=== PATIENT | female | born 1955 | race African-American/Black ===

== ENCOUNTER 2016-11-10 21:10 | Inpatient (IN) | payer MEDICARE, MEDICAID ==
[~2016-11-10] VITALS: Ht 165.1 cm; Wt 165.6 kg
[~2016-11-10 21:10] MED LIST: CYCL5TAB PO; LISI1TAB3 PO; OXYC-323 PO
[2016-11-10] MEDS ORDERED: MORPHINE SULFATE 10 MG/ML VIAL. IV ONE (22:15)
[2016-11-10] MEDS ORDERED: ONDANSETRON PF 4 MG/2 ML VIAL. IV ONE (22:15)
[2016-11-10] MEDS ORDERED: IOHEXOL 300 MG/ML 75 ML VIAL IV ONE (22:45)
[2016-11-10] MEDS ORDERED: CONTRAST GIVEN MC PRN (22:45)
[2016-11-10 23:11] LABS: BASO % 1 % (0-3); EOS % 3 % (0-3); HEMATOCRIT 41.3 % (36.0-47.0); HEMOGLOBIN 13.2 g/dL (12.0-15.5); LYMPH # 1.7 x10^3/uL (1.0-4.8); LYMPH % 27 % (24-48); MEAN CORPUSCULAR HEMOGLOBIN 30 pg (25-35); MEAN CORPUSCULAR HGB CONC 32 g/dL (31-37); MEAN CORPUSCULAR VOLUME 93 fL (79-100); MONO % 13 % (0-9); NEUT % 56 % (31-73); PLATELET COUNT 278 x10^3/uL (140-400); RED BLOOD COUNT 4.46 x10^6/uL (3.50-5.40); RED CELL DISTRIBUTION WIDTH 13.3 % (11.5-14.5); WHITE BLOOD COUNT 6.3 x10^3/uL (4.0-11.0)
[2016-11-10 23:21] LABS: CALCIUM 9.4 mg/dL (8.5-10.1); CREATININE 1.1 mg/dL (0.6-1.0); GFR 61.5; POTASSIUM 4.1 mmol/L (3.5-5.1)
[2016-11-10 23:23] LABS: ALBUMIN/GLOBULIN RATIO 0.7 (1.0-1.7); PROTHROMBIN TIME PATIENT 12.4 SEC (11.7-14.0); TOTAL BILIRUBIN 0.2 mg/dL (0.2-1.0); TOTAL PROTEIN 7.5 g/dL (6.4-8.2)
[2016-11-10 23:27] LABS: BILIRUBIN,URINE NEGATIVE (NEG); GLUCOSE,URINE NEGATIVE (NEG); NITRITE,URINE NEGATIVE (NEG); PROTEIN,URINE NEGATIVE (NEG-TRACE)
[2016-11-10 23:32] LABS: BACTERIA,URINE 0 /HPF (0-FEW); RBC,URINE 0 /HPF (0-2); SQUAMOUS EPITHELIAL CELL,UR MANY /LPF; WBC,URINE 0 /HPF (0-4)
--- NOTE | 2016-11-10 23:40 | PHYS DOC ---
Past Medical History Past Medical History: Hypertension, Other Additional Past Medical Histor: BULGING DISC, OBESITY Past Surgical History: Cholecystectomy, Hysterectomy Alcohol Use: None Drug Use: None Adult General Chief Complaint Chief Complaint: FLANK PAIN HPI HPI 61-year-old morbidly obese female presents with sharp right sided lower chest pain. She states it's underneath her right breast. She states it's worse with deep breath. She has shortness of breath as well as dyspnea on exertion. She states she has felt some palpitations. She also feels like that may be the pain radiates to her back and into her right upper quadrant. She denies any fever chills or sweats. She's not had any nausea or vomiting. She denies any cough or hemoptysis. [] Review of Systems Review of Systems Constitutional: Denies fever or chills [] Eyes: Denies change in visual acuity, redness, or eye pain [] HENT: Denies nasal congestion or sore throat [] Respiratory: Per history of present illness [] Cardiovascular: No additional information not addressed in HPI [] GI: Denies abdominal pain, nausea, vomiting, bloody stools or diarrhea [] : Denies dysuria or hematuria [] Musculoskeletal: Denies back pain or joint pain [] Integument: Denies rash or skin lesions [] Neurologic: Denies headache, focal weakness or sensory changes [] Endocrine: Denies polyuria or polydipsia [] Current Medications Current Medications Current Medications Medications (Trade) Dose Ordered Sig/Cain Start Time Stop Time Status Last Admin Dose Admin Albuterol/ Ipratropium (Duoneb) 3 ml 1X ONCE 11/11/16 00:45 11/11/16 00:46 DC Azithromycin (Zithromax) 500 mg 1X ONCE 11/11/16 00:45 11/11/16 00:46 DC Ceftriaxone Sodium (Rocephin 1gm Ivpb For Omni) 50 ml @ 100 mls/hr 1X ONCE 11/11/16 00:45 11/11/16 01:14 Info 1 each 1 each PRN DAILY PRN 11/10/16 22:45 11/12/16 22:44 Iohexol (Omnipaque 300 Mg/ml) 75 ml 1X ONCE 11/10/16 22:45 11/10/16 22:46 DC 11/10/16 22:45 75 ML Morphine Sulfate 5 mg 1X ONCE 11/10/16 22:15 11/10/16 22:16 DC 11/10/16 23:05 5 MG Ondansetron HCl (Zofran) 4 mg 1X ONCE 11/10/16 22:15 11/10/16 22:16 DC 11/10/16 23:05 4 MG Allergies Allergies Allergies Coded Allergies Type Severity Reaction Last Updated Verified Sulfa (Sulfonamide Antibiotics) Allergy Intermediate Itching 11/27/15 Yes fentanyl Allergy Intermediate Itching 11/27/15 Yes gabapentin Allergy Intermediate Itching 11/27/15 Yes Physical Exam Physical Exam Constitutional: Well developed, well nourished, mild to moderate distress, non- toxic appearance. [] HENT: Normocephalic, atraumatic, bilateral external ears normal, oropharynx moist, no oral exudates, nose normal. [] Eyes: PERRLA, EOMI, conjunctiva normal, no discharge. [] Neck: Normal range of motion, no tenderness, supple, no stridor. [] Cardiovascular: Tachycardia [] Lungs & Thorax: Right chest underneath the right breast mildly tender to palp, good breath sounds bilaterally no wheezes or rales [] Abdomen: Bowel sounds normal, soft, no tenderness, no masses, no pulsatile masses. [] Skin: Warm, dry, no erythema, no rash. [] Back: No tenderness, no CVA tenderness. [] Extremities: No tenderness, no cyanosis, no clubbing, ROM intact, no edema. [] Neurologic: Alert and oriented X 3, normal motor function, normal sensory function, no focal deficits noted. [] Psychologic: Anxious. [] Current Patient Data Vital Signs Vital Signs Date Time Temp Pulse Resp B/P Pulse Ox O2 Delivery O2 Flow Rate FiO2 11/10/16 23:05 24 94 Room Air 11/10/16 21:38 98.5 103 160/77 98.5 Lab Values Laboratory Tests Test 11/10/16 22:50 11/10/16 23:20 White Blood Count 6.3x10^3/uL (4.0-11.0) Red Blood Count 4.46x10^6/uL (3.50-5.40) Hemoglobin 13.2g/dL (12.0-15.5) Hematocrit 41.3% (36.0-47.0) Mean Corpuscular Volume 93fL (79-100) Mean Corpuscular Hemoglobin 30pg (25-35) Mean Corpuscular Hemoglobin Concent 32g/dL (31-37) Red Cell Distribution Width 13.3% (11.5-14.5) Platelet Count 278x10^3/uL (140-400) Neutrophils (%) (Auto) 56% (31-73) Lymphocytes (%) (Auto) 27% (24-48) Monocytes (%) (Auto) 13% (0-9) H Eosinophils (%) (Auto) 3% (0-3) Basophils (%) (Auto) 1% (0-3) Neutrophils # (Auto) 3.6x10^3uL (1.8-7.7) Lymphocytes # (Auto) 1.7x10^3/uL (1.0-4.8) Monocytes # (Auto) 0.8x10^3/uL (0.0-1.1) Eosinophils # (Auto) 0.2x10^3/uL (0.0-0.7) Basophils # (Auto) 0.0x10^3/uL (0.0-0.2) Prothrombin Time 12.4SEC (11.7-14.0) Prothrombin Time INR 1.0 (0.8-1.1) Sodium Level 146mmol/L (136-145) H Potassium Level 4.1mmol/L (3.5-5.1) Chloride Level 108mmol/L (98-107) H Carbon Dioxide Level 27mmol/L (21-32) Anion Gap 11 (6-14) Blood Urea Nitrogen 15mg/dL (7-20) Creatinine 1.1mg/dL (0.6-1.0) H Estimated GFR (Cockcroft-Gault) 61.5 BUN/Creatinine Ratio 14 (6-20) Glucose Level 104mg/dL (70-99) H Calcium Level 9.4mg/dL (8.5-10.1) Total Bilirubin 0.2mg/dL (0.2-1.0) Aspartate Amino Transferase (AST) 23U/L (15-37) Alanine Aminotransferase (ALT) 28U/L (14-59) Alkaline Phosphatase 83U/L (46-116) Total Protein 7.5g/dL (6.4-8.2) Albumin 3.0g/dL (3.4-5.0) L Albumin/Globulin Ratio 0.7 (1.0-1.7) L Lipase 102U/L (73-393) Urine Collection Type Unknown Urine Color Yellow Urine Clarity Clear Urine pH 6.0 Urine Specific Mousie 1.025 Urine Protein Negativemg/dL (NEG-TRACE) Urine Glucose (UA) Negativemg/dL (NEG) Urine Ketones (Stick) Negativemg/dL (NEG) Urine Blood Negative (NEG) Urine Nitrite Negative (NEG) Urine Bilirubin Negative (NEG) Urine Urobilinogen Dipstick 1.0mg/dL (0.2 mg/dL) Urine Leukocyte Esterase Negative (NEG) Urine RBC 0/HPF (0-2) Urine WBC 0/HPF (0-4) Urine Squamous Epithelial Cells Many/LPF Urine Bacteria 0/HPF (0-FEW) Urine Mucus Mod/LPF Laboratory Tests 11/10/16 22:50 Laboratory Tests 11/10/16 22:50 EKG EKG [] Radiology/Procedures Radiology/Procedures [facility] [address] [place] [address] IMAGING REPORT Signed PATIENT: BEVERLY NOEL ACCOUNT: [id number] : 1955 LOCATION: ER AGE: 61 SEX: F EXAM STATUS: REG ER ORD. PHYSICIAN: TONI PRICE DO REASON: chest pain/soa PROCEDURE: CTA CHEST Examination: CT angiography chest. History: History of chest pain, shortness of breath. COMPARISON 05/28/2013. TECHNIQUE Axial CT angiography images of the chest was performed with IV contrast. Coronal sagittal 3D MIP reformats performed. Exposure: One or more of the following dose reduction technique were utilized for this examination: 1. Automated exposure control. 2.Adjustment of MA and /or KV according to patient size. 3. Use of iterative reconstruction technique. Findings: The visualized thyroid gland grossly appears unremarkable. The caliber of the aorta grossly appears unremarkable. Mild aortic atherosclerosis. There is no evidence of filling defect identified in the main pulmonary arterial trunk and right and left main pulmonary arteries. The distal lobar and segmental branches evaluation is limited due to mottling artifact due to patient body habitus. Prominent appearing right and left hilar lymph nodes identified measuring 3.7 centimeters in the right and 2.1 centimeters in the left. Few enlarged mediastinal lymph nodes identified measuring 2.6 centimeters in the right paratracheal region. 2.6 centimeters in the prevascular space and 3.3 centimeters in the subcarinal region grossly similar to prior exam. There is a 5.5 millimeter nodule identified in the right middle lobe of the lung. There is a small focus of opacity measuring 9 millimeters identified in the posterior right upper lobe of the lung likely atelectasis or infiltrate or nodule. Patchy bibasilar lung ground-glass airspace opacities likely atelectasis or infiltrates. Mild emphysematous changes identified in the apical lungs. No evidence of pleural effusion or pneumothorax. The visualized liver, spleen, adrenals grossly appears unremarkable. Moderate degenerative changes thoracic spine. IMPRESSION - No evidence of central pulmonary embolism. The evaluation of the distal lobar and segmental branches of the pulmonary arteries limited due to patient body habitus. - Enlarged bilateral hilar lymph nodes and mediastinal lymph nodes, grossly similar to prior exam. - Patchy bibasilar ground-glass airspace opacity likely atelectasis or infiltrates. Followup to resolution. - 5.5 millimeter nodule identified in the right middle lobe of the lung. 9 millimeter nodule or focus of opacity identified in the posterior right upper lobe of the lung could be a nodule or atelectasis or infiltrate. Followup per Fleischner society guidelines. Electronically signed by: Al Kumari (Nov 11, 2016 00:15:28) DICTATED and SIGNED BY: AL KUMARI MD DATE: 11/11/16 0015 CC: JUAN J PARK MD; TONI PRICE DO ~ Course & Med Decision Making Course & Med Decision Making Skin, it appears that she has some type of interstitial lung disease. This also not very clear whether she has some interstitial infiltrates. She will be admitted to the hospital for observation by the hospitalist with a pulmonology consult as well. 1 g of Rocephin and 500 mg of a Zithromax ordered here in the emergency department. Case was staffed with the hospitalist. Patient was otherwise resting comfortably in her bed during her course stay here. She showed no evidence of a respiratory burn. She was maintained on oxygen via nasal cannula at 2 L/m with an oxygen saturation of 96-98%. Patient states that she was prescribed amoxicillin within the past month for an upper respiratory infection. This was prescribed by her primary care doctor. She states that she did not complete the full course. Dragon Disclaimer Dragon Disclaimer This electronic medical record was generated, in whole or in part, using a voice recognition dictation system. Departure Departure Impression: Primary Impression: Chest pain Additional Impression: Pneumonia Disposition: ADMITTED INPATIENT Admitting Physician: Other (Dr Daly) Condition: STABLE Referrals: JUAN J PARK MD (PCP) Problem Qualifiers TONI PRICE DO Nov 10, 2016 23:40 KRISTIAN LEOS Nov 11, 2016 00:45
--- NOTE | 2016-11-11 00:17 | RAD ---
Examination: CT angiography chest. History: History of chest pain, shortness of breath. COMPARISON 05/28/2013. TECHNIQUE Axial CT angiography images of the chest was performed with IV contrast. Coronal sagittal 3D MIP reformats performed. Exposure: One or more of the following dose reduction technique were utilized for this examination: 1. Automated exposure control. 2.Adjustment of MA and /or KV according to patient size. 3. Use of iterative reconstruction technique. Findings: The visualized thyroid gland grossly appears unremarkable. The caliber of the aorta grossly appears unremarkable. Mild aortic atherosclerosis. There is no evidence of filling defect identified in the main pulmonary arterial trunk and right and left main pulmonary arteries. The distal lobar and segmental branches evaluation is limited due to mottling artifact due to patient body habitus. Prominent appearing right and left hilar lymph nodes identified measuring 3.7 centimeters in the right and 2.1 centimeters in the left. Few enlarged mediastinal lymph nodes identified measuring 2.6 centimeters in the right paratracheal region. 2.6 centimeters in the prevascular space and 3.3 centimeters in the subcarinal region grossly similar to prior exam. There is a 5.5 millimeter nodule identified in the right middle lobe of the lung. There is a small focus of opacity measuring 9 millimeters identified in the posterior right upper lobe of the lung likely atelectasis or infiltrate or nodule. Patchy bibasilar lung ground-glass airspace opacities likely atelectasis or infiltrates. Mild emphysematous changes identified in the apical lungs. No evidence of pleural effusion or pneumothorax. The visualized liver, spleen, adrenals grossly appears unremarkable. Moderate degenerative changes thoracic spine. IMPRESSION - No evidence of central pulmonary embolism. The evaluation of the distal lobar and segmental branches of the pulmonary arteries limited due to patient body habitus. - Enlarged bilateral hilar lymph nodes and mediastinal lymph nodes, grossly similar to prior exam. - Patchy bibasilar ground-glass airspace opacity likely atelectasis or infiltrates. Followup to resolution. - 5.5 millimeter nodule identified in the right middle lobe of the lung. 9 millimeter nodule or focus of opacity identified in the posterior right upper lobe of the lung could be a nodule or atelectasis or infiltrate. Followup per Fleischner society guidelines. Electronically signed by: Al Kumari (Nov 11, 2016 00:15:28)
--- NOTE | 2016-11-11 00:24 | ACF ---
Admission Forms Criteria CHEST PAIN Clinical Indications for Admission to Inpatient Care (Place 'X' for any and all applicable criteria): Admission is indicated for chest pain and ANY ONE of the following(1)(2)(3)(4)(5 ): [ ]I. Angina with acute coronary syndrome (Also use Myocardial Infarction or Angina guideline) [ ]II. Hemodynamic instability [ ]III. Angina needing acute intervention as indicated by ALL of the following( 11)(12): [ ]a) Unstable angina is present as indicated by angina that is ANY ONE of the following: [ ]i) New onset [ ]ii) Nocturnal [ ]iii) Prolonged at rest [ ]iv) Progressive [ ]b) Angina warrants acute intervention as indicated by ANY ONE of the following: [ ]i) Recurrent angina (e.g, not responding as previously to treatment) [ ]ii) Angina at rest or with low-level activities despite initial medical therapy [ ]iii) New or presumably new ST-segment depression on ECG [ ]iv) Signs or symptoms of heart failure (eg, dyspnea, pulmonary edema) [ ]v) New or worsening mitral regurgitation [ ]vi) Hemodynamic instability [ ]vii) Dangerous arrhythmia (eg, sustained ventricular tachycardia) [ ]viii) History of percutaneous coronary intervention within 6 months [ ]ix) History of coronary artery bypass graft surgery [ ]x) KWAKU risk score of 2 or greater[A] [ ]xi) History of Diabetes(14) [ ]xii) High-risk cardiac ischemia findings on noninvasive testing (e.g, echocardiogram, treadmill testing, nuclear scan) [ ]xiii) Chronic renal insufficiency (ie, estimated GFR less than 60 mL/min/1.732m) [ ]xiv) Left ventricular ejection fraction less than 40% [ ]IV. Evidence of NH (eg, cardiac biomarkers positive, ST-segment elevation on ECG) also use Myocardial Infarction Criteria Form. [ ]V. Pulmonary edema [ ]. Respiratory distress [ ]VII. Chest pain indicative of serious diagnosis other than coronary artery disease (eg, aortic dissection) [ ]VIII. Contraindications and/or Inappropriate clinical situations for Observational Care in patients with Chest Pain, when ANY ONE of the following is required: [ ]a) Patient with risk factor for pulmonary embolism, acute coronary syndrome and myocardial infarction (18) [ ]b) Patient with Pulmonary embolism require an average LOS of 4.3 days, therefore emergency department observation management is inappropriate 18,23 [ ]c) Painful condition/s in the elderly, have the highest rate of recidivism after emergency department observation management (10.8%) 20,21,22 [ ]d) Elevated cardiac biomarker requires intensive and exhaustive care (19) [ ]IX. General contraindications and/or Inappropriate clinical situations for Observational Care in patients with Chest Pain, when ANY ONE of the following is required: [ ]a) Prediction of prolongation of LOS based on ANY ONE of the following may be considered as a contraindication for observational care 2, 3, 4, 5, 6, 7, 8, 9, 10, 11 [ ]i) Age > 65 yrs. [ ]ii) Patient arriving by ambulance [ ]iii) Patient with high acuity [ ]iv) Patient requiring vital sign monitoring [ ]v) Patient on IV medication [ ]b) Systolic blood pressures 180mmHg 3,12 [ ]c) Patient with altered mental status including delirium and other alteration of consciousness, (3) [ ]d) Patient whose discharge disposition will be to a fpc home or rehabilitation home should not be managed in Emergency Department Observation Unit. CMS rule requires 3 days hospital stay before such placement. 3,13 [ ]e) Patient with failure to thrive due to broad array of etiologies 3,16,17 [ ]f) Inability to ambulate 3,14 Extended stay beyond goal length of stay may be needed for (1)(28): [ ]a) Specific condition diagnosed after evaluation (eg, pulmonary embolism, aortic dissection) [ ]b) Unstable angina [ ]c) Continued suspicion of acute coronary syndrome with inability to complete needed cardiac evaluation (eg, patient clinically unable to undergo stress testing) [ ]d) Myocardial infarction (Contents from ANGINA and CHEST PAIN clinical indications for admission to inpatient care have been integrated in this form) The original [employer] content created by [employer] has been revised. The portions of the content which have been revised are identified through the use of italic text or in bold, and [employer] has neither reviewed nor approved the modified material. All other unmodified content is copyright [employer]. Please see references footnoted in the original [employer] edition 2016 RYLEY POSADA Nov 11, 2016 00:24
[2016-11-11] MEDS ORDERED: CEFTRIAXONE 1GM IVPB FOR OMNI 50 ML IV ONE (00:45)
[2016-11-11] MEDS ORDERED: IPRATRPIUM/ALBUTEROL 0.5/2.5MG 3 ML NEBU. NEB ONE (00:45)
[2016-11-11] MEDS ORDERED: AZITHROMYCIN 250 MG TABLET PO ONE (00:45)
[2016-11-11] MEDS ORDERED: MORPHINE SULFATE 4 MG/ML DISP.SYRIN. IV ONE (01:30)
--- NOTE | 2016-11-11 01:46 | ACF ---
Admission Forms Criteria PNEUMONIA, COMMUNITY ACQUIRED Clinical Indications for Admission to Inpatient Care ( Place 'X' for any and all applicable criteria): Admission is indicated for ANY ONE of the following (1)(2)(3): [ ]I. Hypoxemia indicated by ANY ONE of the following: [ ]a) Oxygen saturation less than 90% while breathing room air [ ]b) PO2 less than 60 mm Hg (8.0 kPa) while breathing room air [ ]c) Chronic lung disease with significant deterioration from baseline oxygenation [X]II. Appropriate diagnostic testing and treatment unavailable in outpatient or recovery facility (eg,testing or infection control measures unavailable(10) [ ]III. Moderate-risk or high-risk category patients (Pneumonia Severity Index (PSI) class IV or V, or CURB-65 score of 3 or greater). [ ]IV. Outpatient treatment failure as indicated by ANY ONE of the following(9) : [ ]a) Failure to respond to antibiotic (eg, resistant organism) [ ]b) Clinically significant adverse effects from medication (eg, vomiting) [ ]c) Complications of pneumonia (eg, empyema, bacteremia) [ ]d) Significant worsening of comorbid cond necessitating inpatient care (eg, chronic heart failure) [ ]V. Intermediate-risk category patients (eg, PSI class III or CURB-65 score 2) who do not improve with initial therapy and observation. [ ]. Immunocompromised patients (eg, AIDS, chronic steroid use) at moderate or high risk based on clinical evaluation. [ ]VII. Complicated pleural effusions (eg, exudative, loculated) [ ]VIII.Hemodynamic instability [ ] IX. Altered mental status that is severe or persistent. [ ]X. Dehydration that is severe or persistent. [ ]XI. Bacteremia [ ]XII. Respiratory finding (eg. tachypnea) that do not respond to outpatient or observation care treatment Extended stay beyond goal length of stay may be needed for (20) [ ]a) Unclear diagnosis [ ]b) Pleural disease [ ]c) Severe pneumonia or treatment failure (25 [ ]d) Respiratory failure (anticipate invasive or noninvasive ventilatory support) [ ]e) Abnormal serum electrolytes (serum Na concentration less than 135 mEq/L (mmol/L) (32)(33) [ ]f) Clinically significant comorbid illness (eg, heart failure, atrial fibrillation with rapid heart rate, alcohol withdrawal, renal insufficiency)(34)(35) [ ]g) Comorbid acute exacerbation of COPD(36) [ ]h) Concomitant diagnosis of malignancy that may be associated with malnutrition, immunologic impairment, or bronchial obstruction. [ ]i) Concomitant altered mental status [ ]j) Culture-identified Gram-negative or antibiotic-resistant organism (eg, Pseudomonas, methicillin-resistant Staphylococcus aureus)(30) [ ]k) Healthcare-associated pneumonia The original [employer] content created by [employer] has been revised. The portions of the content which have been revised are identified through the use of italic text or in bold, and [facility] has neither reviewed nor approved the modified material. All other unmodified content is copyright [employer] [facility]. Please see references footnoted in the original [employer] [facility] edition 2016 Admission Criteria Met?: Yes RYLEY POSADA Nov 11, 2016 01:46
[2016-11-11 03:00] VITALS: BP 146/66
[2016-11-11] MEDS ORDERED: vesicare PO (03:41)
[2016-11-11] MEDS ORDERED: LUBI24CA5 PO (03:41)
[2016-11-11] MEDS ORDERED: HYDR-2762 PO (03:41)
[2016-11-11] MEDS ORDERED: LOSA25TA PO (03:41)
[2016-11-11] MEDS ORDERED: NAPR500T3 PO (03:41)
[2016-11-11] MEDS: MORPHINE SULFATE 10 MG/ML VIAL. IV SCH ×4 (06:38→23:32)
--- NOTE | 2016-11-11 07:39 | PDOC1 ---
History and Physical Current Problem List Problem List Problems Medical Problems: (1) Chest pain Status: Acute (2) Pneumonia Status: Acute Current Medications Current Medications Current Medications Medications (Trade) Dose Ordered Sig/Cain Start Time Stop Time Status Last Admin Dose Admin Albuterol/ Ipratropium (Duoneb) 3 ml Q6HRS 11/11/16 06:00 Azithromycin (Zithromax) 500 mg 1X ONCE 11/11/16 00:45 11/11/16 00:46 DC 11/11/16 01:18 500 MG Ceftriaxone Sodium (Rocephin 1gm Ivpb For Omni) 50 ml @ 100 mls/hr 1X ONCE 11/11/16 00:45 11/11/16 01:14 DC 11/11/16 01:18 100 MLS/HR Info 1 each 1 each PRN DAILY PRN 11/10/16 22:45 11/12/16 22:44 Iohexol (Omnipaque 300 Mg/ml) 75 ml 1X ONCE 11/10/16 22:45 11/10/16 22:46 DC 11/10/16 22:45 75 ML Morphine Sulfate 4 mg 1X ONCE 11/11/16 01:30 11/11/16 01:31 DC 11/11/16 01:19 4 MG Ondansetron HCl (Zofran) 4 mg 1X ONCE 11/10/16 22:15 11/10/16 22:16 DC 11/10/16 23:05 4 MG Allergies Allergies Allergies Coded Allergies Type Severity Reaction Last Updated Verified Sulfa (Sulfonamide Antibiotics) Allergy Intermediate Itching 11/27/15 Yes fentanyl Allergy Intermediate Itching 11/27/15 Yes gabapentin Allergy Intermediate Itching 11/27/15 Yes ROS Review of System CONSTITUTIONAL: No fever or chills EYES: No recent changes SKIN: No rash or itching CARDIOVASCULAR: No chest pain, syncope, palpitations, or edema RESPIRATORY: SOB or cough GASTROINTESTINAL: No nausea, vomiting or abdominal pain NEUROLOGICAL: No headaches or weakness ENDOCRINE: No cold or heat intolerance GENITOURINARY: No urgency or frequency of urination MUSCULOSKELETAL: No back pain or joint pain LYMPHATICS: No enlarged lymph nodes PSYCHIATRIC: No anxiety or depression Physical Exam Physical Exam GEN.: No apparent distress. Alert and oriented. HEENT: Head is normocephalic, atraumatic NECK: Supple. no JVD LUNGS: Clear to auscultation. Mild rales on right side HEART: RRR, S1, S2 present. Peripheral pulses intact ABDOMEN: Soft, nontender. Positive bowel sounds. EXTREMITIES: Without any cyanosis. NEUROLOGIC: Normal speech, normal tone PSYCHIATRIC: Normal affect, normal mood. SKIN: No ulcerations Vitals Vitals Vital Signs Date Time Temp Pulse Resp B/P Pulse Ox O2 Delivery O2 Flow Rate FiO2 11/11/16 06:38 20 93 Nasal Cannula 2.0 11/11/16 03:00 97.5 85 146/66 97.5 Labs Labs Laboratory Tests Test 11/10/16 22:50 11/10/16 23:20 White Blood Count 6.3x10^3/uL (4.0-11.0) Red Blood Count 4.46x10^6/uL (3.50-5.40) Hemoglobin 13.2g/dL (12.0-15.5) Hematocrit 41.3% (36.0-47.0) Mean Corpuscular Volume 93fL (79-100) Mean Corpuscular Hemoglobin 30pg (25-35) Mean Corpuscular Hemoglobin Concent 32g/dL (31-37) Red Cell Distribution Width 13.3% (11.5-14.5) Platelet Count 278x10^3/uL (140-400) Neutrophils (%) (Auto) 56% (31-73) Lymphocytes (%) (Auto) 27% (24-48) Monocytes (%) (Auto) 13% (0-9) Eosinophils (%) (Auto) 3% (0-3) Basophils (%) (Auto) 1% (0-3) Neutrophils # (Auto) 3.6x10^3uL (1.8-7.7) Lymphocytes # (Auto) 1.7x10^3/uL (1.0-4.8) Monocytes # (Auto) 0.8x10^3/uL (0.0-1.1) Eosinophils # (Auto) 0.2x10^3/uL (0.0-0.7) Basophils # (Auto) 0.0x10^3/uL (0.0-0.2) Prothrombin Time 12.4SEC (11.7-14.0) Prothromb Time International Ratio 1.0 (0.8-1.1) Sodium Level 146mmol/L (136-145) Potassium Level 4.1mmol/L (3.5-5.1) Chloride Level 108mmol/L (98-107) Carbon Dioxide Level 27mmol/L (21-32) Anion Gap 11 (6-14) Blood Urea Nitrogen 15mg/dL (7-20) Creatinine 1.1mg/dL (0.6-1.0) Estimated GFR (Cockcroft-Gault) 61.5 BUN/Creatinine Ratio 14 (6-20) Glucose Level 104mg/dL (70-99) Calcium Level 9.4mg/dL (8.5-10.1) Total Bilirubin 0.2mg/dL (0.2-1.0) Aspartate Amino Transf (AST/SGOT) 23U/L (15-37) Alanine Aminotransferase (ALT/SGPT) 28U/L (14-59) Alkaline Phosphatase 83U/L (46-116) Total Protein 7.5g/dL (6.4-8.2) Albumin 3.0g/dL (3.4-5.0) Albumin/Globulin Ratio 0.7 (1.0-1.7) Lipase 102U/L (73-393) Urine Collection Type Unknown Urine Color Yellow Urine Clarity Clear Urine pH 6.0 Urine Specific Richards 1.025 Urine Protein Negativemg/dL (NEG-TRACE) Urine Glucose (UA) Negativemg/dL (NEG) Urine Ketones (Stick) Negativemg/dL (NEG) Urine Blood Negative (NEG) Urine Nitrite Negative (NEG) Urine Bilirubin Negative (NEG) Urine Urobilinogen Dipstick 1.0mg/dL (0.2 mg/dL) Urine Leukocyte Esterase Negative (NEG) Urine RBC 0/HPF (0-2) Urine WBC 0/HPF (0-4) Urine Squamous Epithelial Cells Many/LPF Urine Bacteria 0/HPF (0-FEW) Urine Mucus Mod/LPF Laboratory Tests Test 11/10/16 22:50 11/10/16 23:20 White Blood Count 6.3x10^3/uL (4.0-11.0) Red Blood Count 4.46x10^6/uL (3.50-5.40) Hemoglobin 13.2g/dL (12.0-15.5) Hematocrit 41.3% (36.0-47.0) Mean Corpuscular Volume 93fL (79-100) Mean Corpuscular Hemoglobin 30pg (25-35) Mean Corpuscular Hemoglobin Concent 32g/dL (31-37) Red Cell Distribution Width 13.3% (11.5-14.5) Platelet Count 278x10^3/uL (140-400) Neutrophils (%) (Auto) 56% (31-73) Lymphocytes (%) (Auto) 27% (24-48) Monocytes (%) (Auto) 13% (0-9) Eosinophils (%) (Auto) 3% (0-3) Basophils (%) (Auto) 1% (0-3) Neutrophils # (Auto) 3.6x10^3uL (1.8-7.7) Lymphocytes # (Auto) 1.7x10^3/uL (1.0-4.8) Monocytes # (Auto) 0.8x10^3/uL (0.0-1.1) Eosinophils # (Auto) 0.2x10^3/uL (0.0-0.7) Basophils # (Auto) 0.0x10^3/uL (0.0-0.2) Prothrombin Time 12.4SEC (11.7-14.0) Prothromb Time International Ratio 1.0 (0.8-1.1) Sodium Level 146mmol/L (136-145) Potassium Level 4.1mmol/L (3.5-5.1) Chloride Level 108mmol/L (98-107) Carbon Dioxide Level 27mmol/L (21-32) Anion Gap 11 (6-14) Blood Urea Nitrogen 15mg/dL (7-20) Creatinine 1.1mg/dL (0.6-1.0) Estimated GFR (Cockcroft-Gault) 61.5 BUN/Creatinine Ratio 14 (6-20) Glucose Level 104mg/dL (70-99) Calcium Level 9.4mg/dL (8.5-10.1) Total Bilirubin 0.2mg/dL (0.2-1.0) Aspartate Amino Transf (AST/SGOT) 23U/L (15-37) Alanine Aminotransferase (ALT/SGPT) 28U/L (14-59) Alkaline Phosphatase 83U/L (46-116) Total Protein 7.5g/dL (6.4-8.2) Albumin 3.0g/dL (3.4-5.0) Albumin/Globulin Ratio 0.7 (1.0-1.7) Lipase 102U/L (73-393) Urine Collection Type Unknown Urine Color Yellow Urine Clarity Clear Urine pH 6.0 Urine Specific Richards 1.025 Urine Protein Negativemg/dL (NEG-TRACE) Urine Glucose (UA) Negativemg/dL (NEG) Urine Ketones (Stick) Negativemg/dL (NEG) Urine Blood Negative (NEG) Urine Nitrite Negative (NEG) Urine Bilirubin Negative (NEG) Urine Urobilinogen Dipstick 1.0mg/dL (0.2 mg/dL) Urine Leukocyte Esterase Negative (NEG) Urine RBC 0/HPF (0-2) Urine WBC 0/HPF (0-4) Urine Squamous Epithelial Cells Many/LPF Urine Bacteria 0/HPF (0-FEW) Urine Mucus Mod/LPF VTE Prophylaxis Ordered VTE Prophylaxis Devices: No VTE Pharmacological Prophylaxi: No ESVIN OLIVEIRA MD Nov 11, 2016 07:39
[2016-11-11 07:47] VITALS: BP 105/71
[2016-11-11] MEDS: IPRATRPIUM/ALBUTEROL 0.5/2.5MG 3 ML NEBU. NEB SCH ×3 (07:56→19:54)
--- NOTE | 2016-11-11 08:56 | PDOC ---
PULMONARY PROGRESS NOTES Vitals Vital Signs Date Time Temp Pulse Resp B/P Pulse Ox O2 Delivery O2 Flow Rate FiO2 11/11/16 08:04 98 Nasal Cannula 2.0 11/11/16 07:47 97.7 95 22 105/71 97.7 Labs Laboratory Tests Test 11/10/16 22:50 11/10/16 23:20 White Blood Count 6.3x10^3/uL (4.0-11.0) Red Blood Count 4.46x10^6/uL (3.50-5.40) Hemoglobin 13.2g/dL (12.0-15.5) Hematocrit 41.3% (36.0-47.0) Mean Corpuscular Volume 93fL (79-100) Mean Corpuscular Hemoglobin 30pg (25-35) Mean Corpuscular Hemoglobin Concent 32g/dL (31-37) Red Cell Distribution Width 13.3% (11.5-14.5) Platelet Count 278x10^3/uL (140-400) Neutrophils (%) (Auto) 56% (31-73) Lymphocytes (%) (Auto) 27% (24-48) Monocytes (%) (Auto) 13% (0-9) Eosinophils (%) (Auto) 3% (0-3) Basophils (%) (Auto) 1% (0-3) Neutrophils # (Auto) 3.6x10^3uL (1.8-7.7) Lymphocytes # (Auto) 1.7x10^3/uL (1.0-4.8) Monocytes # (Auto) 0.8x10^3/uL (0.0-1.1) Eosinophils # (Auto) 0.2x10^3/uL (0.0-0.7) Basophils # (Auto) 0.0x10^3/uL (0.0-0.2) Prothrombin Time 12.4SEC (11.7-14.0) Prothromb Time International Ratio 1.0 (0.8-1.1) Sodium Level 146mmol/L (136-145) Potassium Level 4.1mmol/L (3.5-5.1) Chloride Level 108mmol/L (98-107) Carbon Dioxide Level 27mmol/L (21-32) Anion Gap 11 (6-14) Blood Urea Nitrogen 15mg/dL (7-20) Creatinine 1.1mg/dL (0.6-1.0) Estimated GFR (Cockcroft-Gault) 61.5 BUN/Creatinine Ratio 14 (6-20) Glucose Level 104mg/dL (70-99) Calcium Level 9.4mg/dL (8.5-10.1) Total Bilirubin 0.2mg/dL (0.2-1.0) Aspartate Amino Transf (AST/SGOT) 23U/L (15-37) Alanine Aminotransferase (ALT/SGPT) 28U/L (14-59) Alkaline Phosphatase 83U/L (46-116) Total Protein 7.5g/dL (6.4-8.2) Albumin 3.0g/dL (3.4-5.0) Albumin/Globulin Ratio 0.7 (1.0-1.7) Lipase 102U/L (73-393) Urine Collection Type Unknown Urine Color Yellow Urine Clarity Clear Urine pH 6.0 Urine Specific [place] 1.025 Urine Protein Negativemg/dL (NEG-TRACE) Urine Glucose (UA) Negativemg/dL (NEG) Urine Ketones (Stick) Negativemg/dL (NEG) Urine Blood Negative (NEG) Urine Nitrite Negative (NEG) Urine Bilirubin Negative (NEG) Urine Urobilinogen Dipstick 1.0mg/dL (0.2 mg/dL) Urine Leukocyte Esterase Negative (NEG) Urine RBC 0/HPF (0-2) Urine WBC 0/HPF (0-4) Urine Squamous Epithelial Cells Many/LPF Urine Bacteria 0/HPF (0-FEW) Urine Mucus Mod/LPF Laboratory Tests Test 11/10/16 22:50 11/10/16 23:20 White Blood Count 6.3x10^3/uL (4.0-11.0) Red Blood Count 4.46x10^6/uL (3.50-5.40) Hemoglobin 13.2g/dL (12.0-15.5) Hematocrit 41.3% (36.0-47.0) Mean Corpuscular Volume 93fL (79-100) Mean Corpuscular Hemoglobin 30pg (25-35) Mean Corpuscular Hemoglobin Concent 32g/dL (31-37) Red Cell Distribution Width 13.3% (11.5-14.5) Platelet Count 278x10^3/uL (140-400) Neutrophils (%) (Auto) 56% (31-73) Lymphocytes (%) (Auto) 27% (24-48) Monocytes (%) (Auto) 13% (0-9) Eosinophils (%) (Auto) 3% (0-3) Basophils (%) (Auto) 1% (0-3) Neutrophils # (Auto) 3.6x10^3uL (1.8-7.7) Lymphocytes # (Auto) 1.7x10^3/uL (1.0-4.8) Monocytes # (Auto) 0.8x10^3/uL (0.0-1.1) Eosinophils # (Auto) 0.2x10^3/uL (0.0-0.7) Basophils # (Auto) 0.0x10^3/uL (0.0-0.2) Prothrombin Time 12.4SEC (11.7-14.0) Prothromb Time International Ratio 1.0 (0.8-1.1) Sodium Level 146mmol/L (136-145) Potassium Level 4.1mmol/L (3.5-5.1) Chloride Level 108mmol/L (98-107) Carbon Dioxide Level 27mmol/L (21-32) Anion Gap 11 (6-14) Blood Urea Nitrogen 15mg/dL (7-20) Creatinine 1.1mg/dL (0.6-1.0) Estimated GFR (Cockcroft-Gault) 61.5 BUN/Creatinine Ratio 14 (6-20) Glucose Level 104mg/dL (70-99) Calcium Level 9.4mg/dL (8.5-10.1) Total Bilirubin 0.2mg/dL (0.2-1.0) Aspartate Amino Transf (AST/SGOT) 23U/L (15-37) Alanine Aminotransferase (ALT/SGPT) 28U/L (14-59) Alkaline Phosphatase 83U/L (46-116) Total Protein 7.5g/dL (6.4-8.2) Albumin 3.0g/dL (3.4-5.0) Albumin/Globulin Ratio 0.7 (1.0-1.7) Lipase 102U/L (73-393) Urine Collection Type Unknown Urine Color Yellow Urine Clarity Clear Urine pH 6.0 Urine Specific Moro 1.025 Urine Protein Negativemg/dL (NEG-TRACE) Urine Glucose (UA) Negativemg/dL (NEG) Urine Ketones (Stick) Negativemg/dL (NEG) Urine Blood Negative (NEG) Urine Nitrite Negative (NEG) Urine Bilirubin Negative (NEG) Urine Urobilinogen Dipstick 1.0mg/dL (0.2 mg/dL) Urine Leukocyte Esterase Negative (NEG) Urine RBC 0/HPF (0-2) Urine WBC 0/HPF (0-4) Urine Squamous Epithelial Cells Many/LPF Urine Bacteria 0/HPF (0-FEW) Urine Mucus Mod/LPF Medications Active Scripts Medications Dose Route/Sig Days Date Category Cozaar (Losartan Potassium) 25 Mg Tablet 12.5 Mg PO DAILY 11/11/16 Reported [vesicare] PO DAILY 11/11/16 Reported Naproxen 500 Mg Tablet 1 Tab PO BID PRN 11/11/16 Reported Amitiza (Lubiprostone) 24 Mcg Capsule 1 Cap PO BID 11/11/16 Reported Hydrocodone-Apap 7.5-325 (Hydrocodone Bit/Acetaminophen) 1 Each Tablet 1 Tab PO PRN Q6HRS PRN 11/11/16 Reported Cyclobenzaprine Hcl 5 Mg Tablet 10 Mg PO TID 11/27/15 Reported Impression . full note dictated repeat ct in 4 months thanks AKILA FIERRO MD Nov 11, 2016 08:56
[2016-11-11] MEDS ORDERED: ONDANSETRON PF 4 MG/2 ML VIAL. IV PRN (10:15)
[2016-11-11] MEDS ORDERED: ACETAMINOPHEN 325 MG TABLET. PO PRN (10:15)
[2016-11-11] MEDS ORDERED: GUAIFENESIN/CODEINE 100mg/10mg 5 ML LIQUID. PO PRN (10:15)
[2016-11-11] MEDS ORDERED: ALBUTEROL SULFATE 2.5 MG/3 ML NEBU. NEB PRN (10:15)
[2016-11-11] MEDS ORDERED: hydrALAZINE 20 MG/ML VIAL. IVP PRN (10:15)
[2016-11-11 10:45] VITALS: BP 102/64
[2016-11-11] MEDS: CEFTRIAXONE SODIUM 1 GM in IV NORMAL SALINE 50ML 50 ML IV SCH (11:24)
[2016-11-11] MEDS: AZITHROMYCIN 250 MG TABLET PO SCH (11:24)
[2016-11-11] MEDS ORDERED: HYDROCODONE/APAP 7.5/325MG TABLET. PO PRN (14:00)
[2016-11-11 14:21] VITALS: BP 103/58
[2016-11-11] MEDS: HYDROCODONE/APAP 5/325MG TABLET. PO PRN ×2 (14:43→20:36)
[2016-11-11] MEDS: CYCLOBENZAPRINE 10 MG TABLET. PO SCH ×2 (14:43→20:35)
[2016-11-11] MEDS ORDERED: KETOROLAC 15 MG/ML VIAL. IV PRN (14:45)
--- NOTE | 2016-11-11 16:53 | HP ---
ADMIT DATE: 11/11/2016 CHIEF COMPLAINT: Chest pain. HISTORY OF PRESENT ILLNESS: A 61-year-old female patient with prior history of hypertension, presented to the ER with complaints of cough and right-sided chest pain, sharp in nature, has been there for last couple of days. Chest pain is getting worse with breathing. Sometimes, chest pain is radiating to back and mostly located in the right side of the chest and any movement and deep breath is making her short of breath worse. She denies any sick contact fever chills or any other complaints such as cough or hemoptysis. The patient quit smoking few weeks ago. PAST MEDICAL HISTORY: Hypertension, bulging disk and osteoarthritis, obesity. PAST SURGICAL HISTORY: Cholecystectomy. PERSONAL HISTORY: No smoking, no alcohol, no drug abuse. FAMILY HISTORY: Father had heart condition. ALLERGIES: ____, FENTANYL AND GABAPENTIN. REVIEW OF SYSTEMS, PHYSICAL EXAMINATION: Please see my electronic H and P. LABORATORY FINDINGS: CBC within normal range. Chemistry, sodium 146, potassium 4.1, chloride is 108, carbon dioxide 21, anion gap 11. PT/INR, normal range. Urine, in normal range. IMAGING STUDIES: CT of the chest, no evidence of PE, enlarged bilateral hilar lymph nodes and mediastinal lymph nodes. Patchy bibasilar ground-glass opacity. 5.5 mm nodule identified in the right middle lobe of the lung and 9 mm nodule on the posterior right upper lobe. ASSESSMENT: 1. Atelectasis versus patchy infiltrate. 2. Pulmonary nodules, 5.5 mm and 9 mm. 3. Hypertension. 4. Intractable pleuritic chest pain. 5. Cough. PLAN: 1. Treat the patient for symptomatic chest pain, appears to be pleuritic in nature and we will treat her with Tylenol and [place]. 2. We will start her on IV Rocephin and Zithromax. 3. Consult pulmonology for further recommendations. 4. Supplemental oxygen as needed. 5. Home medications reviewed and reconciled. 6. P.r.n. hydralazine for hypertension. 7. Incentive spirometry. ESVIN OLIVEIRA MD DR: CYNTHIA/erik JOB#: [id number] / [id number] MTDD
[2016-11-11] MEDS: LUBIPROSTONE 8 MCG CAPSULE PO SCH (17:49)
[2016-11-11 19:00] VITALS: BP 106/59
[2016-11-11] MEDS: ENOXAPARIN ** NOTE DOSE ** SYRINGE SQ SCH (20:35)
[2016-11-11 23:00] VITALS: BP 128/78
--- NOTE | 2016-11-12 02:48 | CONS ---
DATE OF CONSULTATION: 11/11/2016 ATTENDING PHYSICIAN: Dr. Canas. REASON FOR CONSULTATION: The patient seen in pulmonary consultation at the request of Dr. Canas for abnormal CT chest. The patient underwent CT of the chest with PE protocol. There was no evidence of pulmonary emboli, there were some nodules. The patient is a 61-year-old that presented with right-sided chest discomfort increasing with inspiration that started on the back and radiating to the right. Denied any fever, chills or night sweats, no increasing shortness of breath, no productive cough, no hemoptysis, no wheezing. She was evaluated and underwent CT chest for PE. There was no evidence of central pulmonary emboli, though the scan was not optimal exam as a consequence of the patient's body habitus, she is well over 300 pounds. There is enlargement of her bilateral hilar lymph nodes and mediastinal nodes similar to prior exam of 05/2013 and there was patchy bibasilar ground glass air opacities, either atelectasis or infiltrates. There was 5.5 mm nodule in the right middle lobe. There was also 9 mm foci opacity in the right upper lobe. The patient smokes, denies any hemoptysis. REVIEW OF SYSTEMS: As indicated above, otherwise, a 10-point system was reviewed and negative. CURRENT MEDICATION: List was reviewed. Please see the MRAD. PAST MEDICAL HISTORY: Hypertension, morbid obesity, cholecystectomy, hysterectomy. PAST SURGICAL HISTORY: As above. FAMILY HISTORY: No family history of lung disorders. SOCIAL HISTORY: She smokes, denies any alcohol intake. ALLERGIES: SULFA, FENTANYL and GABAPENTIN. PHYSICAL EXAMINATION: GENERAL: Morbid obese individual with a body mass index of 60. VITAL SIGNS: Otherwise stable. O2 saturation greater than 92%. She was in no respiratory distress. NECK: Jugular venous distention could not be assessed secondary to body habitus. CHEST: Full expansion. LUNGS: Adequate airway flow, no wheezes. CARDIOVASCULAR: Distant heart sounds with S1, S2, no S3. ABDOMEN: Obese. EXTREMITIES: No pitting edema. NEUROLOGIC: The patient was awake, alert, following commands. A detailed neuro exam was not performed. CT reviewed as indicated above. LABORATORY DATA: Reviewed. IMPRESSION: 1. Abnormal CT of the chest revealing small pulmonary nodules in a patient who smokes. 2. Tobacco dependent. 3. Suspect mild chronic obstructive pulmonary disease. 4. Pleurisy. 5. Chest pain secondary to pleurisy, possible muscle pull. 6. Morbid obesity, body mass index of 60. 7. Atelectasis. PLAN: 1. Recommend repeat CT of the chest in 4 months. 2. Add nonsteroidal for pain management. 3. Once pain is under control, may discharge home to follow up in the office. I do appreciate the privilege in sharing patient's care. AKILA FIERRO MD DR: HAWK/erik JOB#: [id number] / [id number]
[2016-11-12 03:00] VITALS: BP 134/66
[2016-11-12] MEDS: IPRATRPIUM/ALBUTEROL 0.5/2.5MG 3 ML NEBU. NEB SCH ×4 (03:01→19:41)
[2016-11-12] MEDS: MORPHINE SULFATE 10 MG/ML VIAL. IV SCH ×2 (05:26→12:12)
[2016-11-12 06:01] LABS: BASO % 0 % (0-3); EOS % 4 % (0-3); HEMATOCRIT 39.8 % (36.0-47.0); HEMOGLOBIN 12.5 g/dL (12.0-15.5); LYMPH # 1.7 x10^3/uL (1.0-4.8); LYMPH % 36 % (24-48); MEAN CORPUSCULAR HEMOGLOBIN 30 pg (25-35); MEAN CORPUSCULAR HGB CONC 31 g/dL (31-37); MEAN CORPUSCULAR VOLUME 95 fL (79-100); MONO % 11 % (0-9); NEUT % 49 % (31-73); PLATELET COUNT 244 x10^3/uL (140-400); RED CELL DISTRIBUTION WIDTH 13.4 % (11.5-14.5); WHITE BLOOD COUNT 4.8 x10^3/uL (4.0-11.0)
[2016-11-12 06:25] LABS: GFR 68.7; POTASSIUM 4.4 mmol/L (3.5-5.1)
[2016-11-12 07:00] VITALS: BP 122/42
--- NOTE | 2016-11-12 08:46 | PDOC ---
PULMONARY PROGRESS NOTES Subjective pt still in pain not soa Vitals Vital Signs Date Time Temp Pulse Resp B/P Pulse Ox O2 Delivery O2 Flow Rate FiO2 11/12/16 08:28 96 Nasal Cannula 2.0 11/12/16 07:00 98.1 96 19 122/42 98.1 ROS: No Nausea, No Abdominal Pain, No Increase Cough General: Alert Lungs: Clear Cardiovascular: S1, S2 Abdomen: Soft, Non-tender Neuro Exam: Alert Extremities: No Edema Skin: Warm Labs Laboratory Tests Test 11/10/16 22:50 11/10/16 23:20 11/11/16 12:15 11/12/16 05:20 White Blood Count 6.3x10^3/uL (4.0-11.0) 4.8x10^3/uL (4.0-11.0) Red Blood Count 4.46x10^6/uL (3.50-5.40) 4.20x10^6/uL (3.50-5.40) Hemoglobin 13.2g/dL (12.0-15.5) 12.5g/dL (12.0-15.5) Hematocrit 41.3% (36.0-47.0) 39.8% (36.0-47.0) Mean Corpuscular Volume 93fL (79-100) 95fL (79-100) Mean Corpuscular Hemoglobin 30pg (25-35) 30pg (25-35) Mean Corpuscular Hemoglobin Concent 32g/dL (31-37) 31g/dL (31-37) Red Cell Distribution Width 13.3% (11.5-14.5) 13.4% (11.5-14.5) Platelet Count 278x10^3/uL (140-400) 244x10^3/uL (140-400) Neutrophils (%) (Auto) 56% (31-73) 49% (31-73) Lymphocytes (%) (Auto) 27% (24-48) 36% (24-48) Monocytes (%) (Auto) 13% (0-9) 11% (0-9) Eosinophils (%) (Auto) 3% (0-3) 4% (0-3) Basophils (%) (Auto) 1% (0-3) 0% (0-3) Neutrophils # (Auto) 3.6x10^3uL (1.8-7.7) 2.4x10^3uL (1.8-7.7) Lymphocytes # (Auto) 1.7x10^3/uL (1.0-4.8) 1.7x10^3/uL (1.0-4.8) Monocytes # (Auto) 0.8x10^3/uL (0.0-1.1) 0.5x10^3/uL (0.0-1.1) Eosinophils # (Auto) 0.2x10^3/uL (0.0-0.7) 0.2x10^3/uL (0.0-0.7) Basophils # (Auto) 0.0x10^3/uL (0.0-0.2) 0.0x10^3/uL (0.0-0.2) Prothrombin Time 12.4SEC (11.7-14.0) Prothromb Time International Ratio 1.0 (0.8-1.1) Sodium Level 146mmol/L (136-145) 139mmol/L (136-145) Potassium Level 4.1mmol/L (3.5-5.1) 4.4mmol/L (3.5-5.1) Chloride Level 108mmol/L (98-107) 104mmol/L (98-107) Carbon Dioxide Level 27mmol/L (21-32) 25mmol/L (21-32) Anion Gap 11 (6-14) 10 (6-14) Blood Urea Nitrogen 15mg/dL (7-20) 11mg/dL (7-20) Creatinine 1.1mg/dL (0.6-1.0) 1.0mg/dL (0.6-1.0) Estimated GFR (Cockcroft-Gault) 61.5 68.7 BUN/Creatinine Ratio 14 (6-20) Glucose Level 104mg/dL (70-99) 95mg/dL (70-99) Calcium Level 9.4mg/dL (8.5-10.1) 9.0mg/dL (8.5-10.1) Total Bilirubin 0.2mg/dL (0.2-1.0) Aspartate Amino Transf (AST/SGOT) 23U/L (15-37) Alanine Aminotransferase (ALT/SGPT) 28U/L (14-59) Alkaline Phosphatase 83U/L (46-116) Total Protein 7.5g/dL (6.4-8.2) Albumin 3.0g/dL (3.4-5.0) Albumin/Globulin Ratio 0.7 (1.0-1.7) Lipase 102U/L (73-393) Urine Collection Type Unknown Urine Color Yellow Urine Clarity Clear Urine pH 6.0 Urine Specific [place] 1.025 Urine Protein Negativemg/dL (NEG-TRACE) Urine Glucose (UA) Negativemg/dL (NEG) Urine Ketones (Stick) Negativemg/dL (NEG) Urine Blood Negative (NEG) Urine Nitrite Negative (NEG) Urine Bilirubin Negative (NEG) Urine Urobilinogen Dipstick 1.0mg/dL (0.2 mg/dL) Urine Leukocyte Esterase Negative (NEG) Urine RBC 0/HPF (0-2) Urine WBC 0/HPF (0-4) Urine Squamous Epithelial Cells Many/LPF Urine Bacteria 0/HPF (0-FEW) Urine Mucus Mod/LPF Nasal Screen MRSA (PCR) Negative (Negative) Test 11/12/16 07:17 Glucose (Fingerstick) 94mg/dL (70-99) Laboratory Tests Test 11/11/16 12:15 11/12/16 05:20 11/12/16 07:17 Nasal Screen MRSA (PCR) Negative (Negative) White Blood Count 4.8x10^3/uL (4.0-11.0) Red Blood Count 4.20x10^6/uL (3.50-5.40) Hemoglobin 12.5g/dL (12.0-15.5) Hematocrit 39.8% (36.0-47.0) Mean Corpuscular Volume 95fL (79-100) Mean Corpuscular Hemoglobin 30pg (25-35) Mean Corpuscular Hemoglobin Concent 31g/dL (31-37) Red Cell Distribution Width 13.4% (11.5-14.5) Platelet Count 244x10^3/uL (140-400) Neutrophils (%) (Auto) 49% (31-73) Lymphocytes (%) (Auto) 36% (24-48) Monocytes (%) (Auto) 11% (0-9) Eosinophils (%) (Auto) 4% (0-3) Basophils (%) (Auto) 0% (0-3) Neutrophils # (Auto) 2.4x10^3uL (1.8-7.7) Lymphocytes # (Auto) 1.7x10^3/uL (1.0-4.8) Monocytes # (Auto) 0.5x10^3/uL (0.0-1.1) Eosinophils # (Auto) 0.2x10^3/uL (0.0-0.7) Basophils # (Auto) 0.0x10^3/uL (0.0-0.2) Sodium Level 139mmol/L (136-145) Potassium Level 4.4mmol/L (3.5-5.1) Chloride Level 104mmol/L (98-107) Carbon Dioxide Level 25mmol/L (21-32) Anion Gap 10 (6-14) Blood Urea Nitrogen 11mg/dL (7-20) Creatinine 1.0mg/dL (0.6-1.0) Estimated GFR (Cockcroft-Gault) 68.7 Glucose Level 95mg/dL (70-99) Calcium Level 9.0mg/dL (8.5-10.1) Glucose (Fingerstick) 94mg/dL (70-99) Medications Active Scripts Medications Dose Route/Sig Days Date Category Cozaar (Losartan Potassium) 25 Mg Tablet 12.5 Mg PO DAILY 11/11/16 Reported [vesicare] PO DAILY 11/11/16 Reported Naproxen 500 Mg Tablet 1 Tab PO BID PRN 11/11/16 Reported Amitiza (Lubiprostone) 24 Mcg Capsule 1 Cap PO BID 11/11/16 Reported Hydrocodone-Apap 7.5-325 (Hydrocodone Bit/Acetaminophen) 1 Each Tablet 1 Tab PO PRN Q6HRS PRN 11/11/16 Reported Cyclobenzaprine Hcl 5 Mg Tablet 10 Mg PO TID 11/27/15 Reported Impression . IMPRESSION: 1. Abnormal CT of the chest revealing small pulmonary nodules in a patient who smokes. 2. Tobacco dependent. 3. Suspect mild chronic obstructive pulmonary disease. 4. Pleurisy. 5. Chest pain secondary to pleurisy, possible muscle pull. 6. Morbid obesity, body mass index of 60. 7. Atelectasis. Plan . ok to d/c in am follow up with me in 4 months PLAN: 1. Recommend repeat CT of the chest in 4 months. 2. Add nonsteroidal for pain management. 3. Once pain is under control, may discharge home to follow up in the office. AKILA FIERRO MD Nov 12, 2016 08:46
[2016-11-12] MEDS: HYDROCODONE/APAP 5/325MG TABLET. PO PRN ×2 (08:51→20:56)
[2016-11-12] MEDS: CYCLOBENZAPRINE 10 MG TABLET. PO SCH ×3 (09:00→20:56)
[2016-11-12] MEDS: AZITHROMYCIN 250 MG TABLET PO SCH (09:00)
[2016-11-12] MEDS ORDERED: ENOXAPARIN 40 MG/0.4 ML SYRINGE. SQ SCH (09:00)
[2016-11-12] MEDS: ENOXAPARIN ** NOTE DOSE ** SYRINGE SQ SCH ×2 (09:00→20:56)
[2016-11-12] MEDS: LOSARTAN POTASSIUM 25 MG TABLET. PO SCH (09:00)
[2016-11-12] MEDS: LUBIPROSTONE 8 MCG CAPSULE PO SCH ×2 (10:29→18:00)
[2016-11-12] MEDS: CEFTRIAXONE SODIUM 1 GM in IV NORMAL SALINE 50ML 50 ML IV SCH (10:29)
[2016-11-12 11:00] VITALS: BP 109/60
--- NOTE | 2016-11-12 15:21 | PDOC ---
PROGRESS NOTES Chief Complaint Chief Complaint cc: chest pain with breathing A/P 1. Atelectasis 2. Pulmonary nodules, 5.5 mm and 9 mm. 3. Hypertension. 4. Intractable pleuritic chest pain, pleuracy 5. Cough. Plan pain control 6 walk test pulmonolgy follow up anticipated DC this evening labs reviewed, Pt says pain not controlled. Vitals Vitals Vital Signs Date Time Temp Pulse Resp B/P Pulse Ox O2 Delivery O2 Flow Rate FiO2 11/12/16 13:07 Nasal Cannula 2.0 11/12/16 11:00 98.1 88 20 109/60 93 98.1 Physical Exam General: Alert, Oriented X3 Heart: Normal S1, Normal S2 Lungs: Clear Abdomen: Normal bowel sounds Extremities: No clubbing Labs LABS Laboratory Tests Test 11/12/16 05:20 11/12/16 07:17 11/12/16 11:45 White Blood Count 4.8x10^3/uL (4.0-11.0) Red Blood Count 4.20x10^6/uL (3.50-5.40) Hemoglobin 12.5g/dL (12.0-15.5) Hematocrit 39.8% (36.0-47.0) Mean Corpuscular Volume 95fL (79-100) Mean Corpuscular Hemoglobin 30pg (25-35) Mean Corpuscular Hemoglobin Concent 31g/dL (31-37) Red Cell Distribution Width 13.4% (11.5-14.5) Platelet Count 244x10^3/uL (140-400) Neutrophils (%) (Auto) 49% (31-73) Lymphocytes (%) (Auto) 36% (24-48) Monocytes (%) (Auto) 11% (0-9) Eosinophils (%) (Auto) 4% (0-3) Basophils (%) (Auto) 0% (0-3) Neutrophils # (Auto) 2.4x10^3uL (1.8-7.7) Lymphocytes # (Auto) 1.7x10^3/uL (1.0-4.8) Monocytes # (Auto) 0.5x10^3/uL (0.0-1.1) Eosinophils # (Auto) 0.2x10^3/uL (0.0-0.7) Basophils # (Auto) 0.0x10^3/uL (0.0-0.2) Sodium Level 139mmol/L (136-145) Potassium Level 4.4mmol/L (3.5-5.1) Chloride Level 104mmol/L (98-107) Carbon Dioxide Level 25mmol/L (21-32) Anion Gap 10 (6-14) Blood Urea Nitrogen 11mg/dL (7-20) Creatinine 1.0mg/dL (0.6-1.0) Estimated GFR (Cockcroft-Gault) 68.7 Glucose Level 95mg/dL (70-99) Calcium Level 9.0mg/dL (8.5-10.1) Glucose (Fingerstick) 94mg/dL (70-99) 94mg/dL (70-99) Assessment and Plan Assessmemt and Plan Problems Medical Problems: (1) Chest pain Status: Acute (2) Pneumonia Status: Acute Problems: Comment Review of Relevant I have reviewed the following items edison (where applicable) has been applied. Labs Laboratory Tests Test 11/10/16 22:50 11/10/16 23:20 11/11/16 12:15 11/12/16 05:20 White Blood Count 6.3x10^3/uL (4.0-11.0) 4.8x10^3/uL (4.0-11.0) Red Blood Count 4.46x10^6/uL (3.50-5.40) 4.20x10^6/uL (3.50-5.40) Hemoglobin 13.2g/dL (12.0-15.5) 12.5g/dL (12.0-15.5) Hematocrit 41.3% (36.0-47.0) 39.8% (36.0-47.0) Mean Corpuscular Volume 93fL (79-100) 95fL (79-100) Mean Corpuscular Hemoglobin 30pg (25-35) 30pg (25-35) Mean Corpuscular Hemoglobin Concent 32g/dL (31-37) 31g/dL (31-37) Red Cell Distribution Width 13.3% (11.5-14.5) 13.4% (11.5-14.5) Platelet Count 278x10^3/uL (140-400) 244x10^3/uL (140-400) Neutrophils (%) (Auto) 56% (31-73) 49% (31-73) Lymphocytes (%) (Auto) 27% (24-48) 36% (24-48) Monocytes (%) (Auto) 13% (0-9) 11% (0-9) Eosinophils (%) (Auto) 3% (0-3) 4% (0-3) Basophils (%) (Auto) 1% (0-3) 0% (0-3) Neutrophils # (Auto) 3.6x10^3uL (1.8-7.7) 2.4x10^3uL (1.8-7.7) Lymphocytes # (Auto) 1.7x10^3/uL (1.0-4.8) 1.7x10^3/uL (1.0-4.8) Monocytes # (Auto) 0.8x10^3/uL (0.0-1.1) 0.5x10^3/uL (0.0-1.1) Eosinophils # (Auto) 0.2x10^3/uL (0.0-0.7) 0.2x10^3/uL (0.0-0.7) Basophils # (Auto) 0.0x10^3/uL (0.0-0.2) 0.0x10^3/uL (0.0-0.2) Prothrombin Time 12.4SEC (11.7-14.0) Prothromb Time International Ratio 1.0 (0.8-1.1) Sodium Level 146mmol/L (136-145) 139mmol/L (136-145) Potassium Level 4.1mmol/L (3.5-5.1) 4.4mmol/L (3.5-5.1) Chloride Level 108mmol/L (98-107) 104mmol/L (98-107) Carbon Dioxide Level 27mmol/L (21-32) 25mmol/L (21-32) Anion Gap 11 (6-14) 10 (6-14) Blood Urea Nitrogen 15mg/dL (7-20) 11mg/dL (7-20) Creatinine 1.1mg/dL (0.6-1.0) 1.0mg/dL (0.6-1.0) Estimated GFR (Cockcroft-Gault) 61.5 68.7 BUN/Creatinine Ratio 14 (6-20) Glucose Level 104mg/dL (70-99) 95mg/dL (70-99) Calcium Level 9.4mg/dL (8.5-10.1) 9.0mg/dL (8.5-10.1) Total Bilirubin 0.2mg/dL (0.2-1.0) Aspartate Amino Transf (AST/SGOT) 23U/L (15-37) Alanine Aminotransferase (ALT/SGPT) 28U/L (14-59) Alkaline Phosphatase 83U/L (46-116) Total Protein 7.5g/dL (6.4-8.2) Albumin 3.0g/dL (3.4-5.0) Albumin/Globulin Ratio 0.7 (1.0-1.7) Lipase 102U/L (73-393) Urine Collection Type Unknown Urine Color Yellow Urine Clarity Clear Urine pH 6.0 Urine Specific [place] 1.025 Urine Protein Negativemg/dL (NEG-TRACE) Urine Glucose (UA) Negativemg/dL (NEG) Urine Ketones (Stick) Negativemg/dL (NEG) Urine Blood Negative (NEG) Urine Nitrite Negative (NEG) Urine Bilirubin Negative (NEG) Urine Urobilinogen Dipstick 1.0mg/dL (0.2 mg/dL) Urine Leukocyte Esterase Negative (NEG) Urine RBC 0/HPF (0-2) Urine WBC 0/HPF (0-4) Urine Squamous Epithelial Cells Many/LPF Urine Bacteria 0/HPF (0-FEW) Urine Mucus Mod/LPF Nasal Screen MRSA (PCR) Negative (Negative) Test 11/12/16 07:17 11/12/16 11:45 Glucose (Fingerstick) 94mg/dL (70-99) 94mg/dL (70-99) Laboratory Tests Test 11/12/16 05:20 11/12/16 07:17 11/12/16 11:45 White Blood Count 4.8x10^3/uL (4.0-11.0) Red Blood Count 4.20x10^6/uL (3.50-5.40) Hemoglobin 12.5g/dL (12.0-15.5) Hematocrit 39.8% (36.0-47.0) Mean Corpuscular Volume 95fL (79-100) Mean Corpuscular Hemoglobin 30pg (25-35) Mean Corpuscular Hemoglobin Concent 31g/dL (31-37) Red Cell Distribution Width 13.4% (11.5-14.5) Platelet Count 244x10^3/uL (140-400) Neutrophils (%) (Auto) 49% (31-73) Lymphocytes (%) (Auto) 36% (24-48) Monocytes (%) (Auto) 11% (0-9) Eosinophils (%) (Auto) 4% (0-3) Basophils (%) (Auto) 0% (0-3) Neutrophils # (Auto) 2.4x10^3uL (1.8-7.7) Lymphocytes # (Auto) 1.7x10^3/uL (1.0-4.8) Monocytes # (Auto) 0.5x10^3/uL (0.0-1.1) Eosinophils # (Auto) 0.2x10^3/uL (0.0-0.7) Basophils # (Auto) 0.0x10^3/uL (0.0-0.2) Sodium Level 139mmol/L (136-145) Potassium Level 4.4mmol/L (3.5-5.1) Chloride Level 104mmol/L (98-107) Carbon Dioxide Level 25mmol/L (21-32) Anion Gap 10 (6-14) Blood Urea Nitrogen 11mg/dL (7-20) Creatinine 1.0mg/dL (0.6-1.0) Estimated GFR (Cockcroft-Gault) 68.7 Glucose Level 95mg/dL (70-99) Calcium Level 9.0mg/dL (8.5-10.1) Glucose (Fingerstick) 94mg/dL (70-99) 94mg/dL (70-99) Medications Current Medications Ondansetron HCl (Zofran) 4 mg 1X ONCE IV Last administered on 11/10/16 23:05 ; Start 11/10/16 at 22:15; Stop 11/10/16 at 22:16; Status DC Morphine Sulfate 5 mg 1X ONCE IV Last administered on 11/10/16 23:05; Start 11/10/16 at 22:15; Stop 11/10/16 at 22:16; Status DC Iohexol (Omnipaque 300 Mg/ml) 75 ml 1X ONCE IV Last administered on 11/10/16 22:45; Start 11/10/16 at 22:45; Stop 11/10/16 at 22:46; Status DC Info 1 each 1 each PRN DAILY PRN MC SEE COMMENTS; Start 11/10/16 at 22:45; Stop 11/12/16 at 22:44 Ceftriaxone Sodium (Rocephin 1gm Ivpb For Omni) 50 ml @ 100 mls/hr 1X ONCE IV Last administered on 11/11/16 01:18; Start 11/11/16 at 00:45; Stop 11/11/16 at 01:14; Status DC Azithromycin (Zithromax) 500 mg 1X ONCE PO Last administered on 11/11/16 01: 18; Start 11/11/16 at 00:45; Stop 11/11/16 at 00:46; Status DC Albuterol/ Ipratropium (Duoneb) 3 ml 1X ONCE NEB Last administered on 00:59; Start 11/11/16 at 00:45; Stop 11/11/16 at 00:46; Status DC Albuterol/ Ipratropium (Duoneb) 3 ml Q6HRS NEB Last administered on 11/12/16 12:29; Start 11/11/16 at 06:00 Morphine Sulfate 5 mg Q6HRS IV Last administered on 11/12/16 12:12; Start at 06:00 Morphine Sulfate 4 mg 4 mg 1X ONCE IV Last administered on 11/11/16 01:19; Start 11/11/16 at 01:30; Stop 11/11/16 at 01:31; Status DC Ceftriaxone Sodium/Sodium Chloride (Rocephin/Iv Sodium Chloride 0.9% 50ml) 50 ml @ 100 mls/hr Q24H IV Last administered on 11/12/16 10:29; Start 11/11/16 at 11:00 Azithromycin (Zithromax) 250 mg DAILY PO Last administered on 11/12/16 09:00; Start 11/11/16 at 11:00; Stop 11/16/16 at 10:59 Guaifenesin/ Codeine Phosphate (Robitussin Ac) 5 ml PRN Q6HRS PRN PO COUGH; Start 11/11/16 at 10:15 Acetaminophen (Tylenol) 325 mg PRN Q6HRS PRN PO MILD PAIN / TEMP; Start at 10:15 Acetaminophen/ Hydrocodone Bitart (Lortab 5/325) 1 tab PRN Q6HRS PRN PO MODERATE TO SEVERE PAIN Last administered on 11/12/16 08:51; Start 11/11/16 at 10:15 Hydralazine HCl (Apresoline) 10 mg PRN Q4HRS PRN IVP ELEVATED BP, SEE COMMENTS ; Start 11/11/16 at 10:15 Ondansetron HCl (Zofran) 4 mg PRN Q8HRS PRN IV NAUSEA/VOMITING; Start 11/11/16 at 10:15 Albuterol Sulfate (Ventolin Neb Soln) 2.5 mg PRN Q4HRS PRN NEB SHORTNESS OF BREATH; Start 11/11/16 at 10:15 Acetaminophen/ Hydrocodone Bitart (Lortab 7.5/325) 1 tab PRN Q6HRS PRN PO PAIN ; Start 11/11/16 at 14:00 Losartan Potassium (Cozaar) 12.5 mg DAILY PO Last administered on 11/12/16 09: 00; Start 11/12/16 at 09:00 Cyclobenzaprine HCl (Flexeril) 10 mg TID PO Last administered on 11/12/16 14: 50; Start 11/11/16 at 14:00 Lubiprostone (Amitiza) 24 mcg BIDWMEALS PO Last administered on 11/12/16 10:29 ; Start 11/11/16 at 17:00 Ketorolac Tromethamine (Toradol) 15 mg PRN Q6HRS PRN IV PAIN; Start 11/11/16 at 14:45; Stop 11/16/16 at 14:44 Enoxaparin Sodium (Lovenox 40mg Syringe) 40 mg DAILY SQ ; Start 11/12/16 at 09: 00; Stop 11/12/16 at 09:00; Status DC Enoxaparin Sodium (Lovenox 60mg Syringe) 60 mg Q12HR SQ Last administered on 3/ 29/17at 09:00; Start 11/11/16 at 21:00 Active Scripts Active Reported Cozaar (Losartan Potassium) 25 Mg Tablet 12.5 Mg PO DAILY [vesicare] PO DAILY Naproxen 500 Mg Tablet 1 Tab PO BID PRN Amitiza (Lubiprostone) 24 Mcg Capsule 1 Cap PO BID Hydrocodone-Apap 7.5-325 (Hydrocodone Bit/Acetaminophen) 1 Each Tablet 1 Tab PO PRN Q6HRS PRN Cyclobenzaprine Hcl 5 Mg Tablet 10 Mg PO TID Vitals/I & O Vital Sign - Last 24 Hours 11/11/16 11/11/16 11/11/16 11/11/16 17:50 19:00 19:56 20:08 Temp 97.9 97.9 Pulse 87 Resp 20 B/P 106/59 Pulse Ox 90 95 O2 Delivery Nasal Cannula Nasal Cannula Nasal Cannula Nasal Cannula O2 Flow Rate 2.0 2.0 2.0 11/11/16 11/11/16 11/11/16 11/11/16 20:36 21:36 23:00 23:32 Temp 97.6 97.6 Pulse 76 Resp 20 B/P 128/78 Pulse Ox 95 95 90 95 O2 Delivery Nasal Cannula Nasal Cannula Nasal Cannula O2 Flow Rate 2.0 2.0 2.0 11/12/16 11/12/16 11/12/16 11/12/16 03:00 03:01 05:26 05:56 Temp 98.5 98.5 Pulse 80 Resp 18 B/P 134/66 Pulse Ox 98 96 96 96 O2 Delivery Nasal Cannula Nasal Cannula Nasal Cannula O2 Flow Rate 2.0 2.0 2.0 11/12/16 11/12/16 11/12/16 11/12/16 07:00 08:00 08:28 08:51 Temp 98.1 98.1 Pulse 96 Resp 19 B/P 122/42 Pulse Ox 94 96 O2 Delivery Nasal Cannula Nasal Cannula Nasal Cannula Nasal Cannula O2 Flow Rate 2.0 2.0 2.0 2.0 11/12/16 11/12/16 11/12/16 11/12/16 09:00 10:15 11:00 12:12 Temp 98.1 98.1 Pulse 96 88 Resp 20 B/P 122/42 109/60 Pulse Ox 93 O2 Delivery Nasal Cannula Nasal Cannula Nasal Cannula O2 Flow Rate 2.0 2.0 11/12/16 11/12/16 12:46 13:07 O2 Delivery Nasal Cannula Nasal Cannula O2 Flow Rate 2.0 2.0 Intake and Output 11/11/16 11/11/16 11/12/16 15:00 23:00 07:00 Intake Total 1100 ml 480 ml Balance 1100 ml 480 ml ESVIN OLIVEIRA MD Nov 12, 2016 15:21
[2016-11-12] MEDS ORDERED: PREDNISONE 20 MG TABLET PO ONE (16:45)
[2016-11-12 19:00] VITALS: BP 117/76
[2016-11-12 23:00] VITALS: BP 124/68
[2016-11-13] MEDS: IPRATRPIUM/ALBUTEROL 0.5/2.5MG 3 ML NEBU. NEB SCH ×3 (00:03→12:41)
[2016-11-13 03:17] VITALS: BP 132/76
[2016-11-13 04:58] LABS: BASO % 0 % (0-3); EOS % 0 % (0-3); HEMATOCRIT 38.9 % (36.0-47.0); HEMOGLOBIN 12.4 g/dL (12.0-15.5); LYMPH # 0.6 x10^3/uL (1.0-4.8); LYMPH % 17 % (24-48); MEAN CORPUSCULAR HEMOGLOBIN 30 pg (25-35); MEAN CORPUSCULAR HGB CONC 32 g/dL (31-37); MEAN CORPUSCULAR VOLUME 94 fL (79-100); MONO % 4 % (0-9); NEUT % 79 % (31-73); PLATELET COUNT 265 x10^3/uL (140-400); RED BLOOD COUNT 4.14 x10^6/uL (3.50-5.40); RED CELL DISTRIBUTION WIDTH 13.3 % (11.5-14.5); WHITE BLOOD COUNT 3.6 x10^3/uL (4.0-11.0)
[2016-11-13 05:33] LABS: CALCIUM 9.3 mg/dL (8.5-10.1); CREATININE 0.8 mg/dL (0.6-1.0); GFR 88.8; POTASSIUM 4.5 mmol/L (3.5-5.1)
[2016-11-13] MEDS ORDERED: ONDANSETRON PF 4 MG/2 ML VIAL. IV PRN (05:35)
[2016-11-13] MEDS ORDERED: ACETAMINOPHEN 325 MG TABLET. PO PRN (05:35)
[2016-11-13 07:00] VITALS: BP 146/76
[2016-11-13] MEDS ORDERED: CYCLOBENZAPRINE 10 MG TABLET. ONE ×2 (08:17→12:57)
[2016-11-13] MEDS: LUBIPROSTONE 8 MCG CAPSULE PO SCH ×2 (09:03→17:00)
[2016-11-13] MEDS: AZITHROMYCIN 250 MG TABLET PO SCH (09:03)
[2016-11-13] MEDS: CYCLOBENZAPRINE 10 MG TABLET. PO SCH ×2 (09:03→12:59)
[2016-11-13] MEDS: LOSARTAN POTASSIUM 25 MG TABLET. PO SCH (09:04)
--- NOTE | 2016-11-13 09:08 | PDOC ---
PULMONARY PROGRESS NOTES Subjective pt ready for d/c Vitals Vital Signs Date Time Temp Pulse Resp B/P Pulse Ox O2 Delivery O2 Flow Rate FiO2 11/13/16 07:57 Nasal Cannula 2.0 11/13/16 07:00 98.1 98 20 146/76 92 98.1 ROS: No Nausea, No Abdominal Pain, No Increase Cough General: Alert Lungs: Clear Cardiovascular: S1, S2 Abdomen: Soft, Non-tender Neuro Exam: Alert Extremities: No Edema Skin: Warm Labs Laboratory Tests Test 11/11/16 12:15 11/12/16 05:20 11/12/16 07:17 11/12/16 11:45 Nasal Screen MRSA (PCR) Negative (Negative) White Blood Count 4.8x10^3/uL (4.0-11.0) Red Blood Count 4.20x10^6/uL (3.50-5.40) Hemoglobin 12.5g/dL (12.0-15.5) Hematocrit 39.8% (36.0-47.0) Mean Corpuscular Volume 95fL (79-100) Mean Corpuscular Hemoglobin 30pg (25-35) Mean Corpuscular Hemoglobin Concent 31g/dL (31-37) Red Cell Distribution Width 13.4% (11.5-14.5) Platelet Count 244x10^3/uL (140-400) Neutrophils (%) (Auto) 49% (31-73) Lymphocytes (%) (Auto) 36% (24-48) Monocytes (%) (Auto) 11% (0-9) Eosinophils (%) (Auto) 4% (0-3) Basophils (%) (Auto) 0% (0-3) Neutrophils # (Auto) 2.4x10^3uL (1.8-7.7) Lymphocytes # (Auto) 1.7x10^3/uL (1.0-4.8) Monocytes # (Auto) 0.5x10^3/uL (0.0-1.1) Eosinophils # (Auto) 0.2x10^3/uL (0.0-0.7) Basophils # (Auto) 0.0x10^3/uL (0.0-0.2) Sodium Level 139mmol/L (136-145) Potassium Level 4.4mmol/L (3.5-5.1) Chloride Level 104mmol/L (98-107) Carbon Dioxide Level 25mmol/L (21-32) Anion Gap 10 (6-14) Blood Urea Nitrogen 11mg/dL (7-20) Creatinine 1.0mg/dL (0.6-1.0) Estimated GFR (Cockcroft-Gault) 68.7 Glucose Level 95mg/dL (70-99) Calcium Level 9.0mg/dL (8.5-10.1) Glucose (Fingerstick) 94mg/dL (70-99) 94mg/dL (70-99) Test 11/13/16 04:07 White Blood Count 3.6x10^3/uL (4.0-11.0) Red Blood Count 4.14x10^6/uL (3.50-5.40) Hemoglobin 12.4g/dL (12.0-15.5) Hematocrit 38.9% (36.0-47.0) Mean Corpuscular Volume 94fL (79-100) Mean Corpuscular Hemoglobin 30pg (25-35) Mean Corpuscular Hemoglobin Concent 32g/dL (31-37) Red Cell Distribution Width 13.3% (11.5-14.5) Platelet Count 265x10^3/uL (140-400) Neutrophils (%) (Auto) 79% (31-73) Lymphocytes (%) (Auto) 17% (24-48) Monocytes (%) (Auto) 4% (0-9) Eosinophils (%) (Auto) 0% (0-3) Basophils (%) (Auto) 0% (0-3) Neutrophils # (Auto) 2.8x10^3uL (1.8-7.7) Lymphocytes # (Auto) 0.6x10^3/uL (1.0-4.8) Monocytes # (Auto) 0.2x10^3/uL (0.0-1.1) Eosinophils # (Auto) 0.0x10^3/uL (0.0-0.7) Basophils # (Auto) 0.0x10^3/uL (0.0-0.2) Sodium Level 139mmol/L (136-145) Potassium Level 4.5mmol/L (3.5-5.1) Chloride Level 105mmol/L (98-107) Carbon Dioxide Level 27mmol/L (21-32) Anion Gap 7 (6-14) Blood Urea Nitrogen 11mg/dL (7-20) Creatinine 0.8mg/dL (0.6-1.0) Estimated GFR (Cockcroft-Gault) 88.8 Glucose Level 170mg/dL (70-99) Calcium Level 9.3mg/dL (8.5-10.1) Laboratory Tests Test 11/12/16 11:45 11/13/16 04:07 Glucose (Fingerstick) 94mg/dL (70-99) White Blood Count 3.6x10^3/uL (4.0-11.0) Red Blood Count 4.14x10^6/uL (3.50-5.40) Hemoglobin 12.4g/dL (12.0-15.5) Hematocrit 38.9% (36.0-47.0) Mean Corpuscular Volume 94fL (79-100) Mean Corpuscular Hemoglobin 30pg (25-35) Mean Corpuscular Hemoglobin Concent 32g/dL (31-37) Red Cell Distribution Width 13.3% (11.5-14.5) Platelet Count 265x10^3/uL (140-400) Neutrophils (%) (Auto) 79% (31-73) Lymphocytes (%) (Auto) 17% (24-48) Monocytes (%) (Auto) 4% (0-9) Eosinophils (%) (Auto) 0% (0-3) Basophils (%) (Auto) 0% (0-3) Neutrophils # (Auto) 2.8x10^3uL (1.8-7.7) Lymphocytes # (Auto) 0.6x10^3/uL (1.0-4.8) Monocytes # (Auto) 0.2x10^3/uL (0.0-1.1) Eosinophils # (Auto) 0.0x10^3/uL (0.0-0.7) Basophils # (Auto) 0.0x10^3/uL (0.0-0.2) Sodium Level 139mmol/L (136-145) Potassium Level 4.5mmol/L (3.5-5.1) Chloride Level 105mmol/L (98-107) Carbon Dioxide Level 27mmol/L (21-32) Anion Gap 7 (6-14) Blood Urea Nitrogen 11mg/dL (7-20) Creatinine 0.8mg/dL (0.6-1.0) Estimated GFR (Cockcroft-Gault) 88.8 Glucose Level 170mg/dL (70-99) Calcium Level 9.3mg/dL (8.5-10.1) Medications Active Scripts Medications Dose Route/Sig Days Date Category Cozaar (Losartan Potassium) 25 Mg Tablet 12.5 Mg PO DAILY 11/11/16 Reported [vesicare] PO DAILY 11/11/16 Reported Naproxen 500 Mg Tablet 1 Tab PO BID PRN 11/11/16 Reported Amitiza (Lubiprostone) 24 Mcg Capsule 1 Cap PO BID 11/11/16 Reported Hydrocodone-Apap 7.5-325 (Hydrocodone Bit/Acetaminophen) 1 Each Tablet 1 Tab PO PRN Q6HRS PRN 11/11/16 Reported Cyclobenzaprine Hcl 5 Mg Tablet 10 Mg PO TID 11/27/15 Reported Impression . IMPRESSION: 1. Abnormal CT of the chest revealing small pulmonary nodules in a patient who smokes. 2. Tobacco dependent. 3. Suspect mild chronic obstructive pulmonary disease. 4. Pleurisy. 5. Chest pain secondary to pleurisy, possible muscle pull. 6. Morbid obesity, body mass index of 60. 7. Atelectasis. 8. Exertional hypoxemia Plan . needs home 02 follow up with me in 4 months PLAN: 1. Recommend repeat CT of the chest in 4 months. 2. Add nonsteroidal for pain management. 3. Once pain is under control, may discharge home to follow up in the office. AKILA FIERRO MD Nov 13, 2016 09:08
[2016-11-13] MEDS: HYDROCODONE/APAP 5/325MG TABLET. PO PRN (09:10)
[2016-11-13 11:00] VITALS: BP 158/97
[2016-11-13] MEDS: CEFTRIAXONE SODIUM 1 GM in IV NORMAL SALINE 50ML 50 ML IV SCH (11:00)
--- NOTE | 2016-11-13 15:47 | PDOC3 ---
Discharge Summary* Admitting Diagnosis Problems Medical Problems: (1) Chest pain Status: Acute (2) Pneumonia Status: Acute Final Diagnosis 1. Pleuritic chest pain 2. Pulmonary nodules, 5.5 mm and 9 mm. 3. Hypertension 4. Intractable pleuritic chest pain, pleuracy ? COPD Brief Hospital Course Ms. Juarez is a 61 old female who presented with pleuritic chest pain, she was diagnosed with Pulmonary nodules, evaluated by pulmonology, recommend to have repeat CT chest in 4 months. Also Pt had mild hypoxia, possible due to COPD, 6 min walk test showed pt need 2l oxygen with exertion. d/w SW, oxygen has been arranged. Above diagnosis has been discussed with Pt and counselling provided for smoking cessation. EXAM GENERAL: No apparent distress. Alert and oriented. HEENT: Head normocephalic, atraumatic. NECK: Supple LUNGS: Clear to auscultation. HEART: RRR, S1, S2 present, pulses intact ABDOMEN: Soft, positive bowel sounds. EXTREMITIES: No cyanosis or edema. Scheduled ([vesicare]) PO DAILY (Reported) Cyclobenzaprine Hcl (Cyclobenzaprine Hcl) 10 MG PO TID (Reported) Losartan Potassium (Cozaar) 12.5 MG PO DAILY (Reported) Lubiprostone (Amitiza) 1 CAP PO BID (Reported) Scheduled PRN Hydrocodone Bit/Acetaminophen (Hydrocodone-Apap 7.5-325 ) 1 TAB PO PRN Q6HRS PRN PRN PAIN (Reported) Naproxen (Naproxen) 1 TAB PO BID PRN PRN PAIN (Reported) Discontinued Medications Oxycodone/Apap 5-325 (Percocet 5-325 Mg Tablet) 1 TAB PO PRN Q6HRS PRN PRN PAIN (Reported) FOLLOW UP APPOINTMENT: DR WATT Time Spent Total time spent with patient 33 minutes for coordination of care, counseling, and education. ESVIN OLIVEIRA MD Nov 13, 2016 15:47
== END 2016-11-13 17:30 | disposition home or self-care (01) | DRG 206 ==
LOC: ER 21:10 → 5 NORTH 11-11 00:40
PROVIDERS: ADMIT Internal Medicine Hematology & Oncology; ATTEND Internal Medicine Hematology & Oncology
DX: J98.11 Atelectasis (principal); Z68.44 Body mass index [BMI] 60.0-69.9, adult; J44.9 Chronic obstructive pulmonary disease, unspecified; E66.01 Morbid (severe) obesity due to excess calories; F17.200 Nicotine dependence, unspecified, uncomplicated; I10 Essential (primary) hypertension; R09.02 Hypoxemia; R09.1 Pleurisy; M19.90 Unspecified osteoarthritis, unspecified site; Z71.6 Tobacco abuse counseling; Z88.2 Allergy status to sulfonamides; Z88.6 Allergy status to analgesic agent; Z88.8 Allergy status to other drugs, medicaments and biological substances; Z90.49 Acquired absence of other specified parts of digestive tract
CPT/HCPCS: 36415; 71275; 80048; 80053; 81001; 82947; 83690; 85027; 85610; 87641; 94250; 94620; 94640; 94760; 96365; 96375; 96376; J0690; J0696; J1650; J2270; J2405; J7512; J7620; Q0144; Q9967; 97116; 97530; 99285-25

== ENCOUNTER → 2020-08-20 | Outpatient (CLI) | payer MEDICARE ==
[~2020-08-20] MED LIST changes: +HYDR-2765 PO; +LISI1TAB23 PO; -LISI1TAB3 PO; +LOSA25TA PO; +LUBI24CA7 PO; +NAPR-514 PO; -OXYC-323 PO; +OXYC1TAB15 PO; +vesicare PO
--- NOTE | 2020-08-21 14:17 | KCIC ---
Bilateral digital screening mammograms and tomosynthesis Reason for examination: Routine screening. Family history of breast cancer the patient's sister. Comparison is made to previous study dated September 10, 2017 and priors Routine CC and MLO digital views obtained. Interpretation was made with the benefit of CAD. The skin and nipples show no abnormalities. No abnormal lymph nodes are seen. The breast parenchyma i s scattered fibroglandular elements. (Breast density: Category B.) There are no suspicious masses, esparza spicious calcifications or architectural distortions. Benign calcifications. Mild nodularity of the g landular tissue is stable. Impression: Negative mammogram. Recommend routine screening. BI-RADS Category 2: Benign. "Our facility is accredited by the [employer] Mammography Program." This patient's information has been entered into a reminder system for the patient to be notified wit h the results of her examination and a target date for the next mammogram. Electronically signed by: Obey Hector MD (08/21/2020 2:15 PM) [id number]
== END ==
LOC: KCIC 10:10
PROVIDERS: ATTEND Pediatrics
DX: Z12.31 Encounter for screening mammogram for malignant neoplasm of breast (principal)
CPT/HCPCS: 77063; 77067